=== PATIENT | male | born 1950 | race Caucasian/White ===

== ENCOUNTER 2020-07-20 01:00 | Inpatient (IN) | payer MEDICARE ==
[2020-07-20] MEDS ORDERED: HYDROMORPHONE HCL INJ/PF 2 MG/ML AMPULE IM ONE (02:33)
--- NOTE | 2020-07-20 02:33 | RADIOLOGY REPORT (SQ) ---
EXAM: X-ray hip two or more views, left CLINICAL DATA: 70-year-old male with bone pain TECHNICAL DATA: Two x-ray views of the pelvis and left hip were performed on 07/20/2020 at 1:59 AM. COMPARISONS: None FINDINGS: There is no evidence of fracture or dislocation. There is mild generalized narrowing of the hip joints. No focal lytic or sclerotic bone lesions are seen. Bone mineralization is normal. No focal soft tissue abnormalities are identified. IMPRESSION: No evidence of acute osseous injury involving the pelvis or left hip. There is mild generalized narrowing of the hip joints.
--- NOTE | 2020-07-20 02:46 | ER Document Report ---
Entered by ALFREDO DOMINGUEZ SCRIBE 07/20/20 0213 Acting as scribe for:NENITA CREWS DO ED Hip Pain/Injury - General Chief Complaint: Hip Injury Stated Complaint: FALL/LEFT HIP INJURY Mode of Arrival: Wheelchair Information source: Patient Notes: This 70 year old male patient with a history of MS presents to the ED today with complaints of left hip pain status post fall that occurred around 2345 last night. at bedside states that the patient was laying on the couch and fell onto his left hip. They report hearing crackles and a pop. Patient denies hitting his head or LOC. reports that the patient has had left hip pain for the past x5 weeks and that he went to see his PCP in [place] last week with this complaint and was diagnosed with bursitis. He was started on Prednisone which he finished x2 days ago, but reports that it did not provide any relief. She mentions that the patient also tried Tylenol, Aleve, ice/heat packs, and lidocaine patches without resolve. No urinary symptoms. - Related Data Allergies/Adverse Reactions: shellfish derived Allergy (Verified 07/20/20 10:23) Past Medical History - Social History Smoking Status: Never Smoker Cigarette use (# per day): No Chew tobacco use (# tins/day): No Smoking Education Provided: No Lives with: Spouse/Significant other Family History: Reviewed & Not Pertinent Patient has suicidal ideation: No Patient has homicidal ideation: No Musculoskeletal Medical History: Reports Hx Multiple Sclerosis Review of Systems - Review of Systems Constitutional: No symptoms reported EENT: No symptoms reported Cardiovascular: No symptoms reported Respiratory: No symptoms reported Gastrointestinal: No symptoms reported Genitourinary: See HPI. denies: Burning, Dysuria, Frequency, Hematuria Male Genitourinary: No symptoms reported Musculoskeletal: See HPI, Joint pain Skin: No symptoms reported Hematologic/Lymphatic: No symptoms reported Neurological/Psychological: See HPI. denies: Lost consciousness -: Yes All other systems reviewed and negative Physical Exam - Vital signs Vitals: Temp Pulse Resp BP Pulse Ox 97.8 F 40 L 16 147/70 H 100 07/20/20 01:08 07/20/20 01:08 07/20/20 01:08 07/20/20 01:08 07/20/20 01:08 - General General appearance: Alert, Other - Appears uncomfortable In distress: Mild - due to pain - HEENT Head: Normocephalic, Atraumatic Eyes: Normal Extraocular movements intact: Yes Pupils: PERRL - Respiratory Respiratory status: No respiratory distress Chest status: Nontender Breath sounds: Normal Chest palpation: Normal - Cardiovascular Rhythm: Regular Heart sounds: Normal auscultation Murmur: No Friction rub: No Gallop: None auscultated - Abdominal Inspection: Normal Distension: No distension Bowel sounds: Normal Tenderness: Nontender - Abdomen soft Organomegaly: No organomegaly - Back Back: Normal, Nontender - Extremities Hip: Tender - Tenderness to palpation of left hip. No: Instability Thigh: Tender - Tenderness to palpation of left proximal femur. No: Instability - Neurological Neuro grossly intact: Yes Orientation: AAOx4 [place] Coma Scale Eye Opening: Spontaneous [place] Coma Scale Verbal: Oriented [place] Coma Scale Motor: Obeys Commands Nabil Coma Scale Total: 15 - Psychological Associated symptoms: Normal affect, Normal mood - Skin Skin Temperature: Warm Skin Moisture: Dry Skin Color: Normal Course - Re-evaluation Re-evalutation: 07/20/20 04:38 MDM 70 year old with Left hip pain over past week or so and diagnosed with brusitis by pcp in [place]. Fell off of sofa onto left hip tonight. Better after dilaudid but went to move and pain increased. No fever or head injury. Abrasion to little finger right hand with fall but no sig pain. Went to sit up and leave and pain increased again. Will administer toradol and recheck. - Vital Signs Vital signs: Temp Pulse Resp BP Pulse Ox 98.0 F 62 19 147/74 H 97 07/24/20 11:07 07/24/20 11:07 07/24/20 11:07 07/24/20 11:07 07/24/20 11:07 - Laboratory Result Diagrams: 07/23/20 05:10 07/23/20 05:10 Laboratory results interpreted by me: 07/20/20 07/20/20 07/20/20 05:51 05:51 08:30 Hgb 13.3 L BUN 25 H C-Reactive Protein 26.8 H Total Protein 6.2 L Urine Protein 30 H Urine Ketones TRACE H Urine Ascorbic Acid 20 H Discharge - Discharge Clinical Impression: Multiple sclerosis Contusion of left hip Qualifiers: Encounter type: initial encounter Qualified Code(s): S70.02XA - Contusion of left hip, initial encounter Fracture of left hip Qualifiers: Encounter type: initial encounter Fracture type: closed Qualified Code(s): S72.002A - Fracture of unspecified part of neck of left femur, initial encounter for closed fracture Closed intertrochanteric fracture of left hip Qualifiers: Encounter type: initial encounter Fracture alignment: nondisplaced Qualified Code(s): S72.145A - Nondisplaced intertrochanteric fracture of left femur, initial encounter for closed fracture Condition: Stable Disposition: ADMITTED INPATIENT I personally performed the services described in the documentation, reviewed and edited the documentation which was dictated to the scribe in my presence, and it accurately records my words and actions.
--- NOTE | 2020-07-20 03:20 | RADIOLOGY REPORT (SQ) ---
EXAM DESCRIPTION: XR FEMUR 2 VIEWS COMPLETED DATE/TME: 07/20/2020 02:35 CLINICAL HISTORY: 70 years, Male, fall COMPARISON: None. NUMBER OF VIEWS: 4 TECHNIQUE: 4 view left femur LIMITATIONS: None. FINDINGS: Osteopenia. Negative for acute fracture or dislocation. Soft tissues are unremarkable IMPRESSION: No acute osseous abnormality copyright 2010 [employer]- All Rights Reserved
[2020-07-20] MEDS ORDERED: KETOROLAC TROMETHAMINE 60 MG/2 ML SDV IM ONE (04:37)
[2020-07-20] MEDS ORDERED: HYDROMORPHONE HCL INJ/PF 2 MG/ML AMPULE IV ONE ×3 (05:31→13:18)
[2020-07-20 06:28] LABS: ABSOLUTE BASOPHILS # (AUTO) 0.1 10^3/uL (0.0-0.2); ABSOLUTE EOSINOPHILS # (AUTO) 0.1 10^3/uL (0.0-0.6); ABSOLUTE LYMPHOCYTES (AUTO) 1.6 10^3/uL (0.5-4.7); ABSOLUTE MONOCYTES (AUTO) 0.8 10^3/uL (0.1-1.4); BASOPHILS % (AUTO) 0.8 % (0-2); EOSINOPHILS % (AUTO) 1.1 % (0-6); HEMOGLOBIN 13.3 g/dL (13.5-17.0); LYMPHOCYTES % (AUTO) 16.9 % (13-45); MEAN CORPUSCULAR HEMOGLOBIN 29.7 pg (27.0-33.4); MEAN CORPUSCULAR VOLUME 85 fl (80-97); MONOCYTES % (AUTO) 8.1 % (3-13); PLATELET COUNT 222 10^3/uL (150-450); RED BLOOD COUNT 4.47 10^6/uL (4.35-5.55); RED CELL DISTRIBUTION WIDTH 13.8 % (11.5-14.0); SEGMENTED NEUTROPHILS % (AUTO) 73.1 % (42-78); TOTAL CELLS COUNTED % (AUTO) 100 %; WHITE BLOOD COUNT 9.6 10^3/uL (4.0-10.5)
[2020-07-20 06:42] LABS: ALBUMIN 3.6 g/dL (3.5-5.0); ALKALINE PHOSPHATASE 90 U/L (38-126); ANION GAP 9 (5-19); ASPARTATE AMINO TRANSFERASE 40 U/L (17-59); BILIRUBIN,TOTAL 0.8 mg/dL (0.2-1.3); BLOOD UREA NITROGEN 25 mg/dL (7-20); C-REACTIVE PROTEIN 26.8 mg/L (<10.0); CALCIUM 8.8 mg/dL (8.4-10.2); CARBON DIOXIDE 29 mmol/L (22-30); CHLORIDE 100 mmol/L (98-107); GLUCOSE 103 mg/dL (75-110); TOTAL PROTEIN 6.2 g/dL (6.3-8.2)
[2020-07-20 08:51] LABS: APPEARANCE,URINE CLEAR; BILIRUBIN,URINE NEGATIVE (NEGATIVE); COLOR,URINE YELLOW; GLUCOSE, URINE NEGATIVE (NEGATIVE); KETONES,URINE TRACE mg/dL (NEGATIVE); LEUKOCYTE ESTERASE,URINE NEGATIVE (NEGATIVE); NITRITE,URINE NEGATIVE (NEGATIVE); PROTEIN,URINE 30 mg/dL (NEGATIVE); URINE SPECIFIC GRAVITY 1.034; UROBILINOGEN,URINE NEGATIVE mg/dL (<2.0)
--- NOTE | 2020-07-20 09:14 | RADIOLOGY REPORT (SQ) ---
EXAM DESCRIPTION: CT PELVIS WITHOUT IMAGES COMPLETED DATE/TIME: 07/20/2020 8:39 am REASON FOR STUDY: left hip pain COMPARISON: Same day radiograph TECHNIQUE: CT scan of the pelvis performed without intravenous or oral contrast. Images reviewed wi th soft tissue and bone windows. Reconstructed coronal and sagittal MPR images reviewed. All images stored on PACS. All CT scanners at this facility use dose modulation, iterative reconstruction, and/or weight based d osing when appropriate to reduce radiation dose to as low as reasonably achievable (ALARA). [facility]: Dose Right [facility]: CareDose [facility]: Dose Right [facility]: Teradose 4D [facility]: [employer] RADIATION DOSE: CT Rad equipment meets quality standard of care and radiation dose reduction techniq ues were employed. CTDIvol: 24.7 mGy. DLP: 868 mGy-cm. mGy. LIMITATIONS: None. FINDINGS: PELVIC BONES: No acute fracture. No worrisome bone lesions. VISUALIZED SPINE: No acute findings. Mild disc height loss at L4-5 and L5-S1. HIP(S): There is a left proximal intertrochanteric femur fracture without significant displacement or angulation. No suspicious osseous lesions. Mild bilateral hip osteoarthritic change including mild joint space loss, subchondral cystic change and osteophytosis. PELVIC SOFT TISSUES: Trace hydroceles. Scatter epididymal calcifications. EXTRAPELVIC SOFT TISSUES: No significant findings. OTHER: No other significant finding. IMPRESSION: Left proximal intertrochanteric femur fracture without significant displacement or angul ation. Findings reported to Dr. Diop at 0907 hours on 07/20/2020. TECHNICAL DOCUMENTATION: JOB ID: [id number] Quality ID # [id number]: Final reports with documentation of one or more dose reduction techniques (e.g., Au tomated exposure control, adjustment of the mA and/or kV according to patient size, use of iterative reconstruction technique) 2010 [employer]- All Rights Reserved Reading location - IP/workstation name: [email or web address]
[2020-07-20] MEDS ORDERED: ONDANSETRON HCL INJ/PF 4 MG/2 ML SDV IV ONE ×2 (10:08→13:20)
[2020-07-20] MEDS ORDERED: NORMAL SALINE 1000 ML 1,000 ML IV ONE (10:11)
--- NOTE | 2020-07-20 12:08 | RADIOLOGY REPORT (SQ) ---
EXAM DESCRIPTION: CHEST SINGLE VIEW IMAGES COMPLETED DATE/TIME: 07/20/2020 11:44 am REASON FOR STUDY: sobr COMPARISON: None. EXAM PARAMETERS: NUMBER OF VIEWS: One view. TECHNIQUE: Single frontal radiographic view of the chest acquired. RADIATION DOSE: NA LIMITATIONS: None. FINDINGS: LUNGS AND PLEURA: Trace lingular linear opacity, likely atelectasis or scarring. No focal consolidation. No pleural effusion or pneumothorax. MEDIASTINUM AND HILAR STRUCTURES: No masses. Contour normal. HEART AND VASCULAR STRUCTURES: Heart normal in size. Normal vasculature. BONES: No acute findings. HARDWARE: None in the chest. OTHER: No other significant finding. IMPRESSION: Trace lingular linear opacities, likely atelectasis or scarring. No other evidence of a cute intrathoracic process. TECHNICAL DOCUMENTATION: JOB ID: [id number] 2010 [employer]- All Rights Reserved Reading location - IP/workstation name: [email or web address]
--- NOTE | 2020-07-20 12:09 | RADIOLOGY REPORT (SQ) ---
EXAM DESCRIPTION: CT HEAD WITHOUT IMAGES COMPLETED DATE/TIME: 07/20/2020 11:41 am REASON FOR STUDY: facial asymmetry/Multiple Sclerosis COMPARISON: None. TECHNIQUE: Axial images acquired through the brain without intravenous contrast. Images reviewed wi th bone, brain and subdural windows. Additional sagittal and coronal reconstructions were generated. Images stored on PACS. All CT scanners at this facility use dose modulation, iterative reconstruction, and/or weight based d osing when appropriate to reduce radiation dose to as low as reasonably achievable (ALARA). [facility]: Dose Right [facility]: CareDose [facility]: Dose Right [facility]: Teradose 4D [facility]: [employer] RADIATION DOSE: CT Rad equipment meets quality standard of care and radiation dose reduction techniq ues were employed. CTDIvol: 53.2 mGy. DLP: 1150 mGy-cm. mGy. LIMITATIONS: None. FINDINGS: VENTRICLES: Normal size and contour. CEREBRUM: No masses. No hemorrhage. No midline shift. No evidence for acute infarction. Normal gra y/white matter differentiation. No areas of low density in the white matter. CEREBELLUM: No masses. No hemorrhage. No alteration of density. No evidence for acute infarction. EXTRAAXIAL SPACES: No fluid collections. No masses. ORBITS AND GLOBE: No intra- or extraconal masses. Normal contour of globe without masses. CALVARIUM: No fracture. PARANASAL SINUSES: No fluid or mucosal thickening. SOFT TISSUES: No mass or hematoma. OTHER: No other significant finding. IMPRESSION: NORMAL BRAIN CT WITHOUT CONTRAST. EVIDENCE OF ACUTE STROKE: NO. COMMENT: Quality ID # [id number]: Final reports with documentation of one or more dose reduction techniques (e.g., Automated exposure control, adjustment of the mA and/or kV according to patient size, use of iterative reconstruction technique) TECHNICAL DOCUMENTATION: JOB ID: [id number] 2010 [employer]- All Rights Reserved Reading location - IP/workstation name: [email or web address]
--- NOTE | 2020-07-20 12:29 | PDOC CONSULTATION ---
Consultation Consult Date: 07/20/20 Attending physician:: NENITA CREWS Provider Consulted: ALLY HURST Consult reason:: Left hip nondisplaced intertrochanteric fracture History of Present Illness Patient complains of: Left hip pain following fall History of Present Illness: ANUP REID is a 70 year old male history of multiple sclerosis and a 5-week history of left hip pain. He has been treated by his primary care physician for bursitis. He has been taking oral steroids without improvement. The patient states that he was lying on the couch last evening in an attempt to relieve the discomfort in his hip. He sustained a fall directly onto his hip and felt immediate discomfort. CT scan in the emergency department reveals a nondisplaced fracture in the intertrochanteric region of the left hip. Past Medical History Cardiac Medical History: Reports: Hyperlipidema, Hypertension Pulmonary Medical History: Reports: Chronic Obstructive Pulmonary Disease (COPD) EENT Medical History: Reports: None Neurological Medical History: Reports: Multiple Sclerosis Endocrine Medical History: Reports: None Renal/ Medical History: Reports: None Malignancy Medical History: Reports: None, Skin Cancer GI Medical History: Reports: None Musculoskeltal Medical History: Reports: Arthritis Psychiatric Medical History: Reports: Depression, General Anxiety Disorder Traumatic Medical History: Reports: None Hematology: Reports: None Infectious Medical History: Reports: None Past Surgical History Past Surgical History: Reports: Other Social History Lives with: Spouse/Significant other Smoking Status: Never Smoker Frequency of Alcohol Use: None Hx Recreational Drug Use: No Family History Family History: Reviewed & Not Pertinent Parental Family History Reviewed: Yes Children Family History Reviewed: Unknown Sibling(s) Family History Reviewed.: Yes Medication/Allergy Home Medications: Hydrocodone/Acetaminophen [Pavo 5-325 mg Tablet] 1 tab PO TID #12 tablet 07/20/20 Hydrocodone/Acetaminophen [Pavo 5-325 mg Tablet] 1 tab PO TID #12 tablet Polyethylene Glycol 3350 [Miralax Powder 17 gm/Packet] 1 packet PO DAILY #7 pkg 07/20/20 Allergies/Adverse Reactions: shellfish derived Allergy (Verified 07/20/20 10:23) Review of Systems ROS unobtainable: Other - As per HPI Physical Exam Vital Signs: Temp Pulse Resp BP Pulse Ox 98.2 F 68 16 136/76 H 96 07/20/20 10:34 07/20/20 10:34 07/20/20 10:34 07/20/20 10:34 07/20/20 10:34 Intake & Output 07/19/20 07/20/20 07/21/20 06:59 06:59 06:59 Weight 70.3 kg General appearance: PRESENT: no acute distress Head exam: PRESENT: atraumatic Neck exam: PRESENT: full ROM Respiratory exam: PRESENT: clear to auscultation merry. ABSENT: rales, rhonchi, wheezes Cardiovascular exam: PRESENT: RRR. ABSENT: diastolic murmur, rubs, systolic murmur Rectal exam: PRESENT: deferred Musculoskeletal exam: PRESENT: other - There is normal alignment of the left leg. There is discomfort in the groin with gentle internal and external rotation of the hip. The patient has normal motion of the knee, ankle, and foot. Sensation is intact to touch. 2+ DP and PT pulses. Results Laboratory Results: 07/20/20 05:51 07/20/20 05:51 07/20/20 07/20/20 07/20/20 05:51 05:51 08:30 WBC 9.6 RBC 4.47 Hgb 13.3 L Hct 38.0 MCV 85 MCH 29.7 MCHC 35.0 RDW 13.8 Plt Count 222 Seg Neutrophils % 73.1 Sodium 137.5 Potassium 4.0 Chloride 100 Carbon Dioxide 29 Anion Gap 9 BUN 25 H Creatinine 0.95 Est GFR ( Amer) > 60 Glucose 103 Calcium 8.8 Total Bilirubin 0.8 AST 40 Alkaline Phosphatase 90 C-Reactive Protein 26.8 H Total Protein 6.2 L Albumin 3.6 Urine Color YELLOW Urine Appearance CLEAR Urine pH 6.0 Ur Specific [place] 1.034 Urine Protein 30 H Urine Glucose (UA) NEGATIVE Urine Ketones TRACE H Urine Blood NEGATIVE Urine Nitrite NEGATIVE Ur Leukocyte Esterase NEGATIVE Urine WBC (Auto) 7 Urine RBC (Auto) 1 Impressions: Hip X-Ray 07/20/20 00:00 IMPRESSION: No evidence of acute osseous injury involving the pelvis or left hip. There is mild generalized narrowing of the hip joints. Femur X-Ray 07/20/20 02:35 IMPRESSION: No acute osseous abnormality copyright 2010 [employer]- All Rights Reserved Pelvis CT 07/20/20 05:29 IMPRESSION: Left proximal intertrochanteric femur fracture without significant displacement or angulation. Findings reported to Dr. Diop at 0907 hours on 07/20/2020. Chest X-Ray 07/20/20 10:41 IMPRESSION: Trace lingular linear opacities, likely atelectasis or scarring. No other evidence of acute intrathoracic process. Head CT 07/20/20 11:05 IMPRESSION: NORMAL BRAIN CT WITHOUT CONTRAST. EVIDENCE OF ACUTE STROKE: NO. Assessment & Plan - Diagnosis (1) Closed intertrochanteric fracture of left hip Qualifiers: Encounter type: initial encounter Fracture alignment: nondisplaced Qualified Code(s): S72.145A - Nondisplaced intertrochanteric fracture of left fe mur, initial encounter for closed fracture Is this a current diagnosis for this admission?: Yes - Time Time Spent: 30 to 50 Minutes Anticipated discharge: Home Anticipated DC Timeframe: within 48 hours - Plan Summary Plan Summary: The patient is currently undergoing a CT scan of his head to ensure that some potentially new neurologic findings are not due to a CVA. I have recommended operative treatments of the patient's nondisplaced intertrochanteric fracture. Risk, benefits, and alternatives were discussed with the patient. An op portunity for questions was provided. All questions were answered to his satisfaction. The patient expressed understanding and wishes to proceed.
[2020-07-20] MEDS ORDERED: MIDAZOLAM 2 MG/2 ML INJ ONE (15:08)
[2020-07-20] MEDS ORDERED: BUPIVACAINE HCL 0.5 % INJ/PF 30 ML SDV ONE (15:25)
[2020-07-20] MEDS ORDERED: FENTANYL CITRATE INJ/PF 100 MCG/2 ML AMPUL ONE (15:31)
[2020-07-20] MEDS ORDERED: PROPOFOL INJ 200 MG/20 ML VIAL IV ONE (15:31)
[2020-07-20] MEDS ORDERED: CEFAZOLIN INJ 1 GM VIAL ONE (16:00)
[2020-07-20] MEDS ORDERED: PROMETHAZINE HCL INJ 25 MG/1 ML VIAL IV PRN ×2 (16:09)
[2020-07-20] MEDS ORDERED: DIPHENHYDRAMINE HCL 50 MG/ML VIAL IV PRN (16:09)
[2020-07-20] MEDS ORDERED: MEPERIDINE HCL/PF INJ 25 MG/1 ML DISP.SYRIN IV PRN (16:09)
[2020-07-20] MEDS ORDERED: FENTANYL CITRATE INJ/PF 100 MCG/2 ML AMPUL IV PRN ×3 (16:09)
[2020-07-20] MEDS ORDERED: MORPHINE SULFATE 10 MG/ML INJ IV PRN (16:09)
[2020-07-20] MEDS ORDERED: ONDANSETRON HCL INJ/PF 4 MG/2 ML SDV IV PRN ×2 (16:25→17:08)
[2020-07-20] MEDS ORDERED: ACETAMINOPHEN 325 MG TABLET PO PRN (17:08)
[2020-07-20] MEDS ORDERED: ONDANSETRON 4 MG TAB.RAPDIS PO PRN (17:08)
--- NOTE | 2020-07-20 17:17 | RADIOLOGY REPORT (SQ) ---
EXAM DESCRIPTION: NO CHG FLUORO; HIP LEFT AP/LATERAL IMAGES COMPLETED DATE/TIME: 07/20/2020 5:05 pm REASON FOR STUDY: ORIF LT HIP COMPARISON: 07/20/2020 FLUOROSCOPY TIME: 0.6 minutes 3 Images saved to PACS LIMITATIONS: None. PROCEDURE: ORIF left hip. FINDINGS: Images document placement of a medullary pamela and a long cannulated screw through the femor al neck and head. IMPRESSION: ORIF left hip. Refer to operative note for further information. COMMENT: PQRS 6045F: Fluoroscopy time of the procedure is documented in the report. TECHNICAL DOCUMENTATION: JOB ID: [id number] 2010 [employer]- All Rights Reserved Reading location - IP/workstation name: [email or web address]
--- NOTE | 2020-07-20 17:17 | RADIOLOGY REPORT (SQ) ---
EXAM DESCRIPTION: NO CHG FLUORO; HIP LEFT AP/LATERAL IMAGES COMPLETED DATE/TIME: 07/20/2020 5:05 pm REASON FOR STUDY: ORIF LT HIP COMPARISON: 07/20/2020 FLUOROSCOPY TIME: 0.6 minutes 3 Images saved to PACS LIMITATIONS: None. PROCEDURE: ORIF left hip. FINDINGS: Images document placement of a medullary pamela and a long cannulated screw through the femor al neck and head. IMPRESSION: ORIF left hip. Refer to operative note for further information. COMMENT: PQRS 6045F: Fluoroscopy time of the procedure is documented in the report. TECHNICAL DOCUMENTATION: JOB ID: [id number] 2010 [employer]- All Rights Reserved Reading location - IP/workstation name: [email or web address]
--- NOTE | 2020-07-20 17:24 | PDOC H&P ---
History of Present Illness Admission Date/PCP: 07/20/20 14:18 History of Present Illness: ANUP REID is a 70 year old male with past medical history significant for stable multiple sclerosis who presented after falling off of his couch 1 night prior to admission, presented to ED with severe right hip pain, found to have a left intertrochanteric fracture on CT. Orthopedic surgery consulted and they requested medicine to admit and they would take patient to the OR for surgical intervention. Per patient and his , he does have some anxiety issues regarding surgeries and his MS causes some additional unilateral weakness during times of great stress. Patient states he has not had any acute problems from his MS in many years and he does not take any ongoing treatment for this. Patient had some new left-sided facial asymmetry which he and his related to the stress of his hip fracture causing MS to become worse. CT head without contrast did not show any acute abnormalities. Other than severe right hip pain and anxiety, patient has no acute complaints. Past Medical History Cardiac Medical History: Reports: Hyperlipidema, Hypertension Pulmonary Medical History: Reports: Chronic Obstructive Pulmonary Disease (COPD) EENT Medical History: Reports: None Neurological Medical History: Reports: Multiple Sclerosis Endocrine Medical History: Reports: None Renal/ Medical History: Reports: None Malignancy Medical History: Reports: None, Skin Cancer GI Medical History: Reports: None Musculoskeltal Medical History: Reports: Arthritis Psychiatric Medical History: Reports: Depression, General Anxiety Disorder Traumatic Medical History: Reports: None Hematology: Reports: None Infectious Medical History: Reports: None Past Surgical History Past Surgical History: Reports: Other Social History Lives with: Spouse/Significant other Smoking Status: Never Smoker Frequency of Alcohol Use: None Hx Recreational Drug Use: No Hx Prescription Drug Abuse: No - Advance Directive Resuscitation Status: Full Code Surrogate healthcare decision maker:: Family History Family History: Reviewed & Not Pertinent Parental Family History Reviewed: Yes Children Family History Reviewed: Yes Sibling(s) Family History Reviewed.: Yes Medication/Allergy Home Medications: Cholecalciferol (Vitamin D3) [Vitamin D3 1000 Unit Tablet] 1,000 mg PO DAILY 07/20/20 Hydrocodone/Acetaminophen [[place] 5-325 mg Tablet] 1 tab PO TID #12 tablet Hydrocodone/Acetaminophen [[place] 5-325 mg Tablet] 1 tab PO TID #12 tablet 07/20/20 Polyethylene Glycol 3350 [Miralax Powder 17 gm/Packet] 1 packet PO DAILY #7 pkg 07/20/20 Allergies/Adverse Reactions: shellfish derived Allergy (Verified 07/20/20 10:23) Review of Systems All systems: reviewed and no additional remarkable complaints except as stated - Review of systems per HPI, otherwise negative Physical Exam Vital Signs: Temp Pulse Resp BP Pulse Ox 98.8 F 84 18 154/78 H 93 07/20/20 14:14 07/20/20 14:14 07/20/20 14:14 07/20/20 14:14 07/20/20 14:14 Intake & Output 07/19/20 07/20/20 07/21/20 06:59 06:59 06:59 Weight 70.3 kg General appearance: PRESENT: no acute distress, well-developed, well-nourished Head exam: PRESENT: atraumatic, normocephalic Eye exam: PRESENT: conjunctiva pink Mouth exam: PRESENT: moist Respiratory exam: PRESENT: clear to auscultation merry. ABSENT: rales, rhonchi, wheezes Cardiovascular exam: PRESENT: RRR. ABSENT: diastolic murmur, rubs, systolic murmur GI/Abdominal exam: PRESENT: normal bowel sounds, soft. ABSENT: distended, guarding, mass, organolmegaly, rebound, tenderness Neurological exam: PRESENT: alert, awake, oriented to person, oriented to place, oriented to time, oriented to situation Psychiatric exam: PRESENT: appropriate affect, normal mood Skin exam: PRESENT: dry, intact, warm Results Laboratory Results: 07/20/20 05:51 07/20/20 05:51 07/20/20 07/20/20 07/20/20 05:51 05:51 08:30 WBC 9.6 RBC 4.47 Hgb 13.3 L Hct 38.0 MCV 85 MCH 29.7 MCHC 35.0 RDW 13.8 Plt Count 222 Seg Neutrophils % 73.1 Sodium 137.5 Potassium 4.0 Chloride 100 Carbon Dioxide 29 Anion Gap 9 BUN 25 H Creatinine 0.95 Est GFR ( Amer) > 60 Glucose 103 Calcium 8.8 Total Bilirubin 0.8 AST 40 Alkaline Phosphatase 90 C-Reactive Protein 26.8 H Total Protein 6.2 L Albumin 3.6 Urine Color YELLOW Urine Appearance CLEAR Urine pH 6.0 Ur Specific [place] 1.034 Urine Protein 30 H Urine Glucose (UA) NEGATIVE Urine Ketones TRACE H Urine Blood NEGATIVE Urine Nitrite NEGATIVE Ur Leukocyte Esterase NEGATIVE Urine WBC (Auto) 7 Urine RBC (Auto) 1 Impressions: Femur X-Ray 07/20/20 02:35 IMPRESSION: No acute osseous abnormality copyright 2010 [employer]- All Rights Reserved Pelvis CT 07/20/20 05:29 IMPRESSION: Left proximal intertrochanteric femur fracture without significant displacement or angulation. Findings reported to Dr. Diop at 0907 hours on 07/20/2020. Chest X-Ray 07/20/20 10:41 IMPRESSION: Trace lingular linear opacities, likely atelectasis or scarring. N o other evidence of acute intrathoracic process. Head CT 07/20/20 11:05 IMPRESSION: NORMAL BRAIN CT WITHOUT CONTRAST. EVIDENCE OF ACUTE STROKE: NO. Assessment and Plan - Diagnosis (1) Closed intertrochanteric fracture of left hip Qualifiers: Encounter type: initial encounter Fracture alignment: nondisplaced Qualified Code(s): S72.145A - Nondisplaced intertrochanteric fracture of left femur, initial encounter for closed fracture Is this a current diagnosis for this admission?: Yes Plan: Follow his counts onto his left hip Fracture seen on CT scan Orthopedic surgery consulted, went to the OR 07/20 Okay for regular diet when he is out of surgery assuming he passes bedside swallow postop (2) Contusion of left hip Qualifiers: Encounter type: initial encounter Qualified Code(s): S70.02XA - Contusion of left hip, initial encounter Is this a current diagnosis for this admission?: Yes Plan: Pain management (3) Multiple sclerosis Is this a current diagnosis for this admission?: Yes Plan: Not on any treatment currently Not in acute flare, no acute problems with this disease process for many years per patient (4) Anxiety as acute reaction to exceptional stress Is this a current diagnosis for this admission?: Yes Plan: Occasionally causes acute worsening of his MS weakness, stable - Time Time Spent with patient: 35 or more minutes Medications reviewed and adjusted accordingly: Yes Anticipated Discharge Disposition: Nursing Home Facility Anticipated Discharge Timeframe: within 72 hours - Inpatient Certification Based on my medical assessment, after consideration of the patient's comorbidities, presenting symptoms, or acuity I expect that the services needed warrant INPATIENT care.: Yes I certify that my determination is in accordance with my understanding of Medicare's requirements for reasonable and necessary INPATIENT services [42 CFR 412.3e].: Yes Medical Necessity: Significant Comorbidiites Make Outpatient Treatment Too Risky, Need Close Monitoring Due to Risk of Patient Decompensation, Need for Pain Control, Need for Surgery, Risk of Complication if Not Cared For in Hospital, Risk of Diagnosis Which Will Require Inpatient Eval/Care/Monitoring
--- NOTE | 2020-07-20 17:28 | Operative Report ---
Operative Report DATE OF SURGERY: 07/20/20 PREOPERATIVE DIAGNOSIS: Left hip nondisplaced intertrochanteric fracture POSTOPERATIVE DIAGNOSIS: Same OPERATION: Left hip open reduction internal fixation with gamma nail cephalo- medullary implant SURGEON: ALLY HURST ANESTHESIA: GA COMPLICATIONS: None ESTIMATED BLOOD LOSS: 100 cc INTRAOPERATIVE FINDINGS: Same PROCEDURE: Indications for procedure: Patient is a 70-year-old man with multiple sclerosis. His reports that he fell 5 weeks ago going up a wheelchair ramp. He has complained of left hip pain since that fall. His medical doctor describes his symptoms to bursitis and has been treating him for bursitis. He sustained a secondary fall off the couch last evening causing him exquisite pain. Radiographs in the emergency room were negative last evening; however, CT scan demonstrated a nondisplaced intertrochanteric fracture. Description of procedure: Following the induction of a general anesthetic and 2 g of Ancef, the patient was positioned supine on the fracture table. All bony prominences were padded. Sufficient traction was placed through the extremity to maintain the extremity in position. The left lower extremity was sterilely prepped with ChloraPrep and draped in standard fashion. Under intensification starting position for the gamma nail guidewire was identified. Sharp incision was performed through skin with electrocautery through the subcutaneous tissues. Guidewire was placed under image intensification in its proper position and then overreamed. The patient's canal was quite narrow which necessitated sequential reaming from a size 9 to a size 11-1/2. A size 10 short gamma nail was then placed. With the guide from the gamma nail a guidewire was placed centrally through the femoral head. Its position was checked on biplanar image intensification. The guidewire was then overreamed and a 95 mm screw was placed. The screw was locked proximally. Distal locking screw was placed with drilling through the gamma nail guide. The patient's bone was considerably harder than normal which required tapping of the screw threads. A bicortical screw was then placed. Copious irrigation of the wounds was performed. The fascia was closed with 2-0 Vicryl suture. The subcutaneous tissue was closed with 2-0 Vicryl suture. The skin was reapproximated with a subcuticular 3-0 Monocryl suture. 30 cc of quarter percent Marcaine was injected for postoperative analgesia and a bulky sterile dressing was applied. The patient tolerated the procedure well without complications was brought recovery in stable condition. Postoperatively he will be maintained on 24 hours of intravenous antibiotics. He will be seen by therapy for weightbearing as tolerated ambulation training.
--- NOTE | 2020-07-20 17:31 | ADVANCED CARE ---
- Diagnosis (1) Closed intertrochanteric fracture of left hip Diagnosis Current: Yes (2) Contusion of left hip Diagnosis Current: Yes (3) Multiple sclerosis Diagnosis Current: Yes (4) Anxiety as acute reaction to exceptional stress Diagnosis Current: Yes Attendance: Patient Resuscitation Status: Full Code Discussion: All aspects of code status discussed with patient/POA including cardioversion, chest compressions, and intubation and the patient/POA indicated they wish to be full code MPOA is designated as: Time Spent: Greater than 16 minutes
[2020-07-20] MEDS: ENOXAPARIN SODIUM INJ 40 MG/0.4 ML DISP.SYRIN SUBCUT SCH (18:30)
[2020-07-20] MEDS: OXYCODONE-ACETAMINOPHEN 5-325 MG TABLET PO PRN (20:17)
[2020-07-21] MEDS: OXYCODONE-ACETAMINOPHEN 5-325 MG TABLET PO PRN ×6 (00:20→21:13)
[2020-07-21 06:45] LABS: HEMATOCRIT 32.2 % (37.9-51.0); HEMOGLOBIN 11.5 g/dL (13.5-17.0); MEAN CORPUSCULAR HEMOGLOBIN 30.3 pg (27.0-33.4); MEAN CORPUSCULAR HGB CONC 35.6 g/dL (32.0-36.0); MEAN CORPUSCULAR VOLUME 85 fl (80-97); PLATELET COUNT 172 10^3/uL (150-450); RED BLOOD COUNT 3.79 10^6/uL (4.35-5.55); RED CELL DISTRIBUTION WIDTH 13.9 % (11.5-14.0); WHITE BLOOD COUNT 8.1 10^3/uL (4.0-10.5)
[2020-07-21 07:12] LABS: ALBUMIN 3.2 g/dL (3.5-5.0); ALKALINE PHOSPHATASE 84 U/L (38-126); ANION GAP 5 (5-19); ASPARTATE AMINO TRANSFERASE 45 U/L (17-59); BILIRUBIN,DIRECT 0.1 mg/dL (0.0-0.4); BILIRUBIN,TOTAL 1.1 mg/dL (0.2-1.3); BLOOD UREA NITROGEN 17 mg/dL (7-20); CALCIUM 8.2 mg/dL (8.4-10.2); CARBON DIOXIDE 30 mmol/L (22-30); CHLORIDE 100 mmol/L (98-107); GLUCOSE 117 mg/dL (75-110); PHOSPHORUS 2.8 mg/dL (2.5-4.5); POTASSIUM 3.9 mmol/L (3.6-5.0); TOTAL PROTEIN 5.5 g/dL (6.3-8.2)
[2020-07-21] MEDS: ENOXAPARIN SODIUM INJ 40 MG/0.4 ML DISP.SYRIN SUBCUT SCH ×3 (11:07→11:10)
[2020-07-21] MEDS: DOCUSATE SODIUM 100 MG CAPSULE PO SCH (11:07)
--- NOTE | 2020-07-21 14:04 | PDOC PROGRESS REPORT ---
Subjective Progress Note for:: 07/21/20 Subjective:: The patient is complaining of postoperative discomfort of the left hip following cephalo-medullary nail placement for intertrochanteric fracture. Reason For Visit: ACUTE RIGHT HIP FRACTURE AFTER FALL AT HOME, Postoperative day #1 status post open reduction internal fixation of left hip intertrochanteric fracture with gamma cephalo-medullary nail. Physical Exam Vital Signs: Temp Pulse Resp BP Pulse Ox 98.3 F 87 19 113/98 H 99 07/21/20 11:00 07/21/20 11:00 07/21/20 11:00 07/21/20 11:00 07/21/20 11:00 Intake & Output 07/20/20 07/21/20 07/22/20 06:59 06:59 06:59 Intake Total 1290 Output Total 900 225 Balance 390 -225 Weight 70.3 kg 70 kg General appearance: PRESENT: no acute distress, well-developed, well-nourished Head exam: PRESENT: atraumatic, normocephalic Neck exam: PRESENT: full ROM Respiratory exam: PRESENT: clear to auscultation merry. ABSENT: rales, rhonchi, wheezes Cardiovascular exam: PRESENT: RRR. ABSENT: diastolic murmur, rubs, systolic murmur Musculoskeletal exam: PRESENT: other - The surgical incisions are healing well. There is no drainage on the postoperative dressings. There is no discomfort with gentle motion of the hip. The patient is able to dorsiflex and plantarflex the ankle. Sensation is normal. Results Laboratory Results: 07/21/20 06:10 07/21/20 06:10 07/21/20 07/21/20 06:10 06:10 WBC 8.1 RBC 3.79 L Hgb 11.5 L Hct 32.2 L MCV 85 MCH 30.3 MCHC 35.6 RDW 13.9 Plt Count 172 Sodium 134.8 L Potassium 3.9 Chloride 100 Carbon Dioxide 30 Anion Gap 5 BUN 17 Creatinine 0.90 Est GFR ( Amer) > 60 Glucose 117 H Calcium 8.2 L Phosphorus 2.8 Magnesium 2.1 Total Bilirubin 1.1 AST 45 Alkaline Phosphatase 84 Total Protein 5.5 L Albumin 3.2 L Impressions: Fluoroscopy 07/20/20 00:00 IMPRESSION: ORIF left hip. Refer to operative note for further information. Hip X-Ray 07/20/20 00:00 IMPRESSION: ORIF left hip. Refer to operative note for further information. Femur X-Ray 07/20/20 02:35 IMPRESSION: No acute osseous abnormality copyright 2011 [employer] All Rights Reserved Pelvis CT 07/20/20 05:29 IMPRESSION: Left proximal intertrochanteric femur fracture without significant displacement or angulation. Findings reported to Dr. Diop at 0907 hours on 07/20/2020. Chest X-Ray 07/20/20 10:41 IMPRESSION: Trace lingular linear opacities, likely atelectasis or scarring. No other evidence of acute intrathoracic process. Head CT 07/20/20 11:05 IMPRESSION: NORMAL BRAIN CT WITHOUT CONTRAST. EVIDENCE OF ACUTE STROKE: NO. Assessment & Plan - Diagnosis (1) Closed intertrochanteric fracture of left hip Qualifiers: Encounter type: initial encounter Fracture alignment: nondisplaced Qualified Code(s): S72.145A - Nondisplaced intertrochanteric fracture of left femur, initial encounter for closed fracture Is this a current diagnosis for this admission?: Yes - Time Critical Time spent with patient: 15-24 minutes Anticipated Discharge Disposition: Home, Self Care Anticipated Discharge Timeframe: within 24 hours - I have discussed with the patient that given his clinical history it is likely that the symptoms he was experiencing prior to his most recent fall were due to a nondisplaced fracture of the hip sustained in a previous fall 5 weeks ago. Given the patient's relatively young age, I am hopeful that he will progress with physical therapy and be able to be discharged home. He is clear for discharge from an orthopedic standpoint either to home if he can be cleared by physical therapy or to a senior care facility.
--- NOTE | 2020-07-21 14:05 | EKG REPORT ---
SEVERITY:- ABNORMAL ECG - SINUS RHYTHM MULTIPLE ATRIAL PREMATURE COMPLEXES NONSPECIFIC T ABNORMALITIES, LATERAL LEADS : Confirmed by: Jazmin Brooke 21-Jul-2020 14:05:02
[2020-07-21] MEDS ORDERED: TRAMADOL HCL 50 MG TABLET PO PRN (14:18)
[2020-07-21] MEDS ORDERED: ACETAMINOPHEN 325 MG TABLET PO PRN (14:19)
[2020-07-21] MEDS ORDERED: ONDANSETRON HCL INJ/PF 4 MG/2 ML SDV IV PRN (14:20)
--- NOTE | 2020-07-21 14:34 | PDOC PROGRESS REPORT ---
Subjective Subjective:: Patient admitted for left hip fracture, underwent surgical correction overnight 07/20. Pain seems to be mostly controlled and patient is starting to work with physical therapy. Orthopedic surgery states that patient can be discharged soon after he is gotten some more physical therapy and been evaluated for SNF versus home health. Patient has no new complaints other than moderate to severe intermittent left hip pain. Reason For Visit: ACUTE RIGHT HIP FRACTURE AFTER FALL AT HOME, Physical Exam Vital Signs: Temp Pulse Resp BP Pulse Ox 98.3 F 87 19 113/98 H 99 07/21/20 11:00 07/21/20 11:00 07/21/20 11:00 07/21/20 11:00 07/21/20 11:00 Intake & Output 07/20/20 07/21/20 07/22/20 06:59 06:59 06:59 Intake Total 1290 Output Total 900 225 Balance 390 -225 Weight 70.3 kg 70 kg General appearance: PRESENT: no acute distress, well-developed, well-nourished Head exam: PRESENT: atraumatic, normocephalic Eye exam: PRESENT: conjunctiva pink Mouth exam: PRESENT: moist Respiratory exam: PRESENT: clear to auscultation merry. ABSENT: rales, rhonchi, wheezes Cardiovascular exam: PRESENT: RRR. ABSENT: diastolic murmur, rubs, systolic murmur GI/Abdominal exam: PRESENT: normal bowel sounds, soft. ABSENT: distended, guarding, mass, organolmegaly, rebound, tenderness Musculoskeletal exam: PRESENT: tenderness - Left hip tenderness moderate to severe at times Neurological exam: PRESENT: alert, awake, oriented to person, oriented to place, oriented to time, oriented to situation Results Laboratory Results: 07/21/20 06:10 07/21/20 06:10 07/21/20 07/21/20 06:10 06:10 WBC 8.1 RBC 3.79 L Hgb 11.5 L Hct 32.2 L MCV 85 MCH 30.3 MCHC 35.6 RDW 13.9 Plt Count 172 Sodium 134.8 L Potassium 3.9 Chloride 100 Carbon Dioxide 30 Anion Gap 5 BUN 17 Creatinine 0.90 Est GFR ( Amer) > 60 Glucose 117 H Calcium 8.2 L Phosphorus 2.8 Magnesium 2.1 Total Bilirubin 1.1 AST 45 Alkaline Phosphatase 84 Total Protein 5.5 L Albumin 3.2 L Impressions: Fluoroscopy 07/20/20 00:00 IMPRESSION: ORIF left hip. Refer to operative note for further information. Hip X-Ray 07/20/20 00:00 IMPRESSION: ORIF left hip. Refer to operative note for further information. Femur X-Ray 07/20/20 02:35 IMPRESSION: No acute osseous abnormality copyright 2010 [employer]- All Rights Reserved Pelvis CT 07/20/20 05:29 IMPRESSION: Left proximal intertrochanteric femur fracture without significant displacement or angulation. Findings reported to Dr. Diop at 0907 hours on 07/20/2020. Chest X-Ray 07/20/20 10:41 IMPRESSION: Trace lingular linear opacities, likely atelectasis or scarring. No other evidence of acute intrathoracic process. Head CT 07/20/20 11:05 IMPRESSION: NORMAL BRAIN CT WITHOUT CONTRAST. EVIDENCE OF ACUTE STROKE: NO. Assessment and Plan - Diagnosis (1) Closed intertrochanteric fracture of left hip Qualifiers: Encounter type: initial encounter Fracture alignment: nondisplaced Qualified Code(s): S72.145A - Nondisplaced intertrochanteric fracture of left femur, initial encounter for closed fracture Is this a current diagnosis for this admission?: Yes Plan: Follow his counts onto his left hip Fracture seen on CT scan Orthopedic surgery consulted, went to the OR 07/20 Okay for regular diet when he is out of surgery assuming he passes bedside swallow postop 07/19/2020 Orthopedic surgery state surgery went well and patient can be discharged from their standpoint after he receives some additional physical therapy and evaluation for SNF versus home health Pain is not quite controlled today and we will continue working on this today (2) Contusion of left hip Qualifiers: Encounter type: initial encounter Qualified Code(s): S70.02XA - Contusion of left hip, initial encounter Is this a current diagnosis for this admission?: Yes (3) Multiple sclerosis Is this a current diagnosis for this admission?: Yes Plan: Not on any treatment currently Not in acute flare, no acute problems with this disease process for many years per patient Stable postop per patient, at baseline (4) Anxiety as acute reaction to exceptional stress Is this a current diagnosis for this admission?: Yes Plan: Occasionally causes acute worsening of his MS weakness, stable Resolved - Time Time Spent with patient: 25-34 minutes Medications reviewed and adjusted accordingly: Yes Anticipated Discharge Disposition: Home with Home Health Anticipated Discharge Timeframe: within 24 hours - Inpatient Certification Based on my medical assessment, after consideration of the patient's comorbidities, presenting symptoms, or acuity I expect that the services needed warrant INPATIENT care.: Yes I certify that my determination is in accordance with my understanding of Medicare's requirements for reasonable and necessary INPATIENT services [42 CFR 412.3e].: Yes Medical Necessity: Significant Comorbidiites Make Outpatient Treatment Too Risky, Need Close Monitoring Due to Risk of Patient Decompensation, Need for Pain Control, Risk of Complication if Not Cared For in Hospital, Risk of Diagnosis Which Will Require Inpatient Eval/Care/Monitoring
[2020-07-21] MEDS: ASPIRIN 325 MG TABLET PO SCH (15:17)
[2020-07-21] MEDS: CEFAZOLIN SODIUM 2 GM in DEXTROSE 5%-WATER 100 ML IV SCH (17:15)
[2020-07-22] MEDS: OXYCODONE-ACETAMINOPHEN 5-325 MG TABLET PO PRN ×4 (01:23→19:15)
[2020-07-22] MEDS: CEFAZOLIN SODIUM 2 GM in DEXTROSE 5%-WATER 100 ML IV SCH ×2 (01:24→09:57)
[2020-07-22 05:47] LABS: HEMATOCRIT 34.3 % (37.9-51.0); HEMOGLOBIN 12.1 g/dL (13.5-17.0); MEAN CORPUSCULAR HEMOGLOBIN 30.1 pg (27.0-33.4); MEAN CORPUSCULAR HGB CONC 35.2 g/dL (32.0-36.0); MEAN CORPUSCULAR VOLUME 85 fl (80-97); PLATELET COUNT 185 10^3/uL (150-450); RED BLOOD COUNT 4.01 10^6/uL (4.35-5.55); RED CELL DISTRIBUTION WIDTH 13.7 % (11.5-14.0); WHITE BLOOD COUNT 8.6 10^3/uL (4.0-10.5)
[2020-07-22 06:13] LABS: ALBUMIN 3.2 g/dL (3.5-5.0); ALKALINE PHOSPHATASE 103 U/L (38-126); ASPARTATE AMINO TRANSFERASE 47 U/L (17-59); BILIRUBIN,DIRECT 0.4 mg/dL (0.0-0.4); BILIRUBIN,TOTAL 1.1 mg/dL (0.2-1.3); BLOOD UREA NITROGEN 15 mg/dL (7-20); CALCIUM 8.6 mg/dL (8.4-10.2); GLUCOSE 115 mg/dL (75-110); POTASSIUM 4.5 mmol/L (3.6-5.0); TOTAL PROTEIN 5.9 g/dL (6.3-8.2)
[2020-07-22 06:20] LABS: ANION GAP 8 (5-19); CARBON DIOXIDE 31 mmol/L (22-30); CHLORIDE 97 mmol/L (98-107)
[2020-07-22] MEDS: DOCUSATE SODIUM 100 MG CAPSULE PO SCH (09:56)
[2020-07-22] MEDS: ASPIRIN 325 MG TABLET PO SCH (09:56)
[2020-07-22] MEDS: ENOXAPARIN SODIUM INJ 40 MG/0.4 ML DISP.SYRIN SUBCUT SCH (09:59)
--- NOTE | 2020-07-22 13:34 | PDOC PROGRESS REPORT ---
Subjective Progress Note for:: 07/22/20 Subjective:: The patient is complaining of postoperative discomfort of the left hip following cephalo-medullary nail placement for intertrochanteric fracture. The patient reports doing reasonably well with the therapist. He states that he has difficulty initiating ambulation but once he begins to ambulate he does not experience any problems. The therapy note has been reviewed. Reason For Visit: ACUTE RIGHT HIP FRACTURE AFTER FALL AT HOME, Postoperative day #2 status post open reduction internal fixation left intertrochanteric fracture with gamma cephalo-medullary nail. Physical Exam Vital Signs: Temp Pulse Resp BP Pulse Ox 99.3 F 42 L 23 H 152/63 H 98 07/22/20 07:58 07/22/20 07:50 07/22/20 07:50 07/22/20 07:50 07/22/20 07:50 Intake & Output 07/21/20 07/22/20 07/23/20 06:59 06:59 06:59 Intake Total 1290 1536 100 Output Total 900 1050 Balance 390 486 100 Weight 70 kg 70 kg General appearance: PRESENT: no acute distress, well-developed, well-nourished Neck exam: PRESENT: full ROM Respiratory exam: PRESENT: clear to auscultation merry. ABSENT: rales, rhonchi, wheezes Cardiovascular exam: PRESENT: RRR. ABSENT: diastolic murmur, rubs, systolic murmur Musculoskeletal exam: PRESENT: other - The surgical incisions are healing well. There is no drainage. There is no discomfort with passive motion of the hip. The patient has normal motion of the ankle and foot. Sensation is normal. Results Laboratory Results: 07/22/20 04:40 07/22/20 04:40 07/22/20 07/22/20 04:40 04:40 WBC 8.6 RBC 4.01 L Hgb 12.1 L Hct 34.3 L MCV 85 MCH 30.1 MCHC 35.2 RDW 13.7 Plt Count 185 Sodium 136.3 L Potassium 4.5 Chloride 97 L Carbon Dioxide 31 H Anion Gap 8 BUN 15 Creatinine 0.89 Est GFR ( Amer) > 60 Glucose 115 H Calcium 8.6 Total Bilirubin 1.1 AST 47 Alkaline Phosphatase 103 Total Protein 5.9 L Albumin 3.2 L Impressions: Fluoroscopy 07/20/20 00:00 IMPRESSION: ORIF left hip. Refer to operative note for further information. Hip X-Ray 07/20/20 00:00 IMPRESSION: ORIF left hip. Refer to operative note for further information. Femur X-Ray 07/20/20 02:35 IMPRESSION: No acute osseous abnormality copyright 2011 [employer]- All Rights Reserved Pelvis CT 07/20/20 05:29 IMPRESSION: Left proximal intertrochanteric femur fracture without significant displacement or angulation. Findings reported to Dr. Diop at 0907 hours on 07/20/2020. Chest X-Ray 07/20/20 10:41 IMPRESSION: Trace lingular linear opacities, likely atelectasis or scarring. No other evidence of acute intrathoracic process. Head CT 07/20/20 11:05 IMPRESSION: NORMAL BRAIN CT WITHOUT CONTRAST. EVIDENCE OF ACUTE STROKE: NO. Assessment & Plan - Diagnosis (1) Closed intertrochanteric fracture of left hip Qualifiers: Encounter type: initial encounter Fracture alignment: nondisplaced Qualified Code(s): S72.145A - Nondisplaced intertrochanteric fracture of left femur, initial encounter for closed fracture Is this a current diagnosis for this admission?: Yes - Time Critical Time spent with patient: 15-24 minutes Anticipated Discharge Disposition: Home, Self Care Anticipated Discharge Timeframe: within 24 hours - Plan Summary Plan Summary: The patient is doing well. He is clear for discharge from an orthopedic standpoint. The question remains whether he will be able to return home or whether he will require nursing home facility placement. The patient was a ble to ambulate 20 feet today with the therapist. The patient should follow-up in my office in 2 weeks following discharge for wound evaluation.
--- NOTE | 2020-07-22 18:22 | PDOC PROGRESS REPORT ---
Subjective Subjective:: Patient admitted for left hip fracture, underwent surgical correction overnight 07/20. Pain seems to be mostly controlled and patient is starting to work with physical therapy. Orthopedic surgery states that patient can be discharged soon after he is gotten some more physical therapy and been evaluated for SNF versus home health. Patient has no new complaints other than moderate to severe intermittent left hip pain. 07/22/2020 Patient is to be overall doing quite well today and he states his pain is mostly controlled although when he does physical therapy it hurts quite a bit more as might be expected. We spoke again about how he should preemptively take his pain medicine before he starts therapy. He states he did not do this last time and he regretted it. Patient does not want to go to a rehab facility and insists that he will go home with home physical therapy instead. He is not having any significant worsening of his MS symptoms. Other than continued pain in his left hip, he has no new complaints. Possible discharge tomorrow if orthopedics agrees. Reason For Visit: ACUTE RIGHT HIP FRACTURE AFTER FALL AT HOME, Physical Exam Vital Signs: Temp Pulse Resp BP Pulse Ox 98.6 F 44 L 17 138/60 H 100 07/22/20 15:49 07/22/20 15:49 07/22/20 15:49 07/22/20 15:49 07/22/20 15:49 Intake & Output 07/21/20 07/22/20 07/23/20 06:59 06:59 06:59 Intake Total 1290 1536 936 Output Total 900 1050 400 Balance 390 486 536 Weight 70 kg 70 kg General appearance: PRESENT: no acute distress, well-developed, well-nourished Head exam: PRESENT: atraumatic, normocephalic Eye exam: PRESENT: conjunctiva pink Mouth exam: PRESENT: moist Respiratory exam: PRESENT: clear to auscultation merry. ABSENT: rales, rhonchi, wheezes Cardiovascular exam: PRESENT: RRR. ABSENT: diastolic murmur, rubs, systolic murmur GI/Abdominal exam: PRESENT: normal bowel sounds, soft. ABSENT: distended, guarding, mass, organolmegaly, rebound, tenderness Musculoskeletal exam: PRESENT: tenderness - Left hip tenderness moderate Neurological exam: PRESENT: alert, awake, oriented to person, oriented to place, oriented to time, oriented to situation Psychiatric exam: PRESENT: appropriate affect, normal mood Skin exam: PRESENT: dry, intact, warm Results Laboratory Results: 07/22/20 04:40 07/22/20 04:40 07/22/20 07/22/20 04:40 04:40 WBC 8.6 RBC 4.01 L Hgb 12.1 L Hct 34.3 L MCV 85 MCH 30.1 MCHC 35.2 RDW 13.7 Plt Count 185 Sodium 136.3 L Potassium 4.5 Chloride 97 L Carbon Dioxide 31 H Anion Gap 8 BUN 15 Creatinine 0.89 Est GFR ( Amer) > 60 Glucose 115 H Calcium 8.6 Total Bilirubin 1.1 AST 47 Alkaline Phosphatase 103 Total Protein 5.9 L Albumin 3.2 L Impressions: Fluoroscopy 07/20/20 00:00 IMPRESSION: ORIF left hip. Refer to operative note for further information. Hip X-Ray 07/20/20 00:00 IMPRESSION: ORIF left hip. Refer to operative note for further information. Femur X-Ray 07/20/20 02:35 IMPRESSION: No acute osseous abnormality copyright 2011 [employer]- All Rights Reserved Pelvis CT 07/20/20 05:29 IMPRESSION: Left proximal intertrochanteric femur fracture without significant displacement or angulation. Findings reported to Dr. Diop at 0907 hours on 07/20/2020. Chest X-Ray 07/20/20 10:41 IMPRESSION: Trace lingular linear opacities, likely atelectasis or scarring. No other evidence of acute intrathoracic process. Head CT 07/20/20 11:05 IMPRESSION: NORMAL BRAIN CT WITHOUT CONTRAST. EVIDENCE OF ACUTE STROKE: NO. Assessment and Plan - Diagnosis (1) Closed intertrochanteric fracture of left hip Qualifiers: Encounter type: initial encounter Fracture alignment: nondisplaced Qualified Code(s): S72.145A - Nondisplaced intertrochanteric fracture of left femur, initial encounter for closed fracture Is this a current diagnosis for this admission?: Yes Plan: Follow his counts onto his left hip Fracture seen on CT scan Orthopedic surgery consulted, went to the OR 07/20 Okay for regular diet when he is out of surgery assuming he passes bedside swallow postop 07/19/2020 Orthopedic surgery state surgery went well and patient can be discharged from their standpoint after he receives some additional physical therapy and evalu ation for SNF versus home health Pain is not quite controlled today and we will continue working on this today 07/22/2020 Pain management. Patient instructed to take pain medicine prior to his phys ical therapy sessions and he agreed Possible discharge tomorrow if orthopedics agrees. Patient only wants to go home with home physical therapy. States he is afraid of coronavirus and does not want to go to SNF because of this. (2) Contusion of left hip Qualifiers: Encounter type: initial encounter Qualified Code(s): S70.02XA - Contusion of left hip, initial encounter Is this a current diagnosis for this admission?: Yes (3) Multiple sclerosis Is this a current diagnosis for this admission?: Yes (4) Anxiety as acute reaction to exceptional stress Is this a current diagnosis for this admission?: Yes - Time Time Spent with patient: 25-34 minutes Medications reviewed and adjusted accordingly: Yes Anticipated Discharge Disposition: Home with Home Health Anticipated Discharge Timeframe: within 48 hours - Inpatient Certification Based on my medical assessment, after consideration of the patient's comorbidities, presenting symptoms, or acuity I expect that the services needed warrant INPATIENT care.: Yes I certify that my determination is in accordance with my understanding of Medicare's requirements for reasonable and necessary INPATIENT services [42 CFR 412.3e].: Yes Medical Necessity: Significant Comorbidiites Make Outpatient Treatment Too Risky, Need Close Monitoring Due to Risk of Patient Decompensation, Need for Pain Control, Risk of Complication if Not Cared For in Hospital, Risk of Sabrina gnosis Which Will Require Inpatient Eval/Care/Monitoring
[2020-07-23] MEDS: OXYCODONE-ACETAMINOPHEN 5-325 MG TABLET PO PRN ×4 (00:07→22:21)
[2020-07-23 06:00] LABS: HEMATOCRIT 33.3 % (37.9-51.0); HEMOGLOBIN 11.5 g/dL (13.5-17.0); MEAN CORPUSCULAR HEMOGLOBIN 29.5 pg (27.0-33.4); MEAN CORPUSCULAR HGB CONC 34.6 g/dL (32.0-36.0); MEAN CORPUSCULAR VOLUME 85 fl (80-97); PLATELET COUNT 173 10^3/uL (150-450); RED CELL DISTRIBUTION WIDTH 13.7 % (11.5-14.0); WHITE BLOOD COUNT 8.5 10^3/uL (4.0-10.5)
[2020-07-23 06:30] LABS: ALBUMIN 3.1 g/dL (3.5-5.0); ALKALINE PHOSPHATASE 121 U/L (38-126); ANION GAP 8 (5-19); ASPARTATE AMINO TRANSFERASE 42 U/L (17-59); BILIRUBIN,DIRECT 0.3 mg/dL (0.0-0.4); BILIRUBIN,TOTAL 0.9 mg/dL (0.2-1.3); BLOOD UREA NITROGEN 14 mg/dL (7-20); CALCIUM 8.6 mg/dL (8.4-10.2); CARBON DIOXIDE 31 mmol/L (22-30); CHLORIDE 96 mmol/L (98-107); GLUCOSE 113 mg/dL (75-110); POTASSIUM 3.9 mmol/L (3.6-5.0); TOTAL PROTEIN 5.8 g/dL (6.3-8.2)
[2020-07-23] MEDS: ASPIRIN 325 MG TABLET PO SCH (09:02)
[2020-07-23] MEDS: DOCUSATE SODIUM 100 MG CAPSULE PO SCH (09:02)
[2020-07-23] MEDS: ENOXAPARIN SODIUM INJ 40 MG/0.4 ML DISP.SYRIN SUBCUT SCH (09:07)
--- NOTE | 2020-07-23 16:38 | PDOC PROGRESS REPORT ---
Subjective Subjective:: Patient admitted for left hip fracture, underwent surgical correction overnight 07/20. Pain seems to be mostly controlled and patient is starting to work with physical therapy. Orthopedic surgery states that patient can be discharged soon after he is gotten some more physical therapy and been evaluated for SNF versus home health. Patient has no new complaints other than moderate to severe intermittent left hip pain. 07/22/2020 Patient is to be overall doing quite well today and he states his pain is mostly controlled although when he does physical therapy it hurts quite a bit more as might be expected. We spoke again about how he should preemptively take his pain medicine before he starts therapy. He states he did not do this last time and he regretted it. Patient does not want to go to a rehab facility and insists that he will go home with home physical therapy instead. He is not having any significant worsening of his MS symptoms. Other than continued pain in his left hip, he has no new complaints. Possible discharge tomorrow if orthopedics agrees. 07/23/2020 Patient's pain is mostly controlled except for when he is doing therapy when it increases. He is ready for discharge per my recommendations and orthopedics. He could be discharged today if his are ready to take him home. He has physical therapy set up in his home for Thursday. I spoke with the staff and there is no reason for him to stay here to wait for Thursday. He will be discharged tomorrow assuming everyone else is in agreement with this. Reason For Visit: ACUTE RIGHT HIP FRACTURE AFTER FALL AT HOME, Physical Exam Vital Signs: Temp Pulse Resp BP Pulse Ox 98.4 F 82 18 133/59 H 100 07/23/20 16:11 07/23/20 16:11 07/23/20 16:11 07/23/20 16:11 07/23/20 16:11 Intake & Output 07/22/20 07/23/20 07/24/20 06:59 06:59 06:59 Intake Total 1536 1056 240 Output Total 1050 950 250 Balance 486 106 -10 Weight 70 kg 69.1 kg Exam: General appearance: PRESENT: no acute distress, well-developed, well-nourished Head exam: PRESENT: atraumatic, normocephalic Eye exam: PRESENT: conjunctiva pink Mouth exam: PRESENT: moist Respiratory exam: PRESENT: clear to auscultation merry. ABSENT: rales, rhonchi, wheezes Cardiovascular exam: PRESENT: RRR. ABSENT: diastolic murmur, rubs, systolic murmur GI/Abdominal exam: PRESENT: normal bowel sounds, soft. ABSENT: distended, guarding, mass, organolmegaly, rebound, tenderness Musculoskeletal exam: PRESENT: tenderness - Left hip tenderness moderate Neurological exam: PRESENT: alert, awake, oriented to person, oriented to place, oriented to time, oriented to situation Psychiatric exam: PRESENT: appropriate affect, normal mood Skin exam: PRESENT: dry, intact, warm Results Laboratory Results: 07/23/20 05:10 07/23/20 05:10 07/23/20 07/23/20 05:10 05:10 WBC 8.5 RBC 3.90 L Hgb 11.5 L Hct 33.3 L MCV 85 MCH 29.5 MCHC 34.6 RDW 13.7 Plt Count 173 Sodium 134.9 L Potassium 3.9 Chloride 96 L Carbon Dioxide 31 H Anion Gap 8 BUN 14 Creatinine 0.89 Est GFR ( Amer) > 60 Glucose 113 H Calcium 8.6 Total Bilirubin 0.9 AST 42 Alkaline Phosphatase 121 Total Protein 5.8 L Albumin 3.1 L Impressions: Fluoroscopy 07/20/20 00:00 IMPRESSION: ORIF left hip. Refer to operative note for further information. Hip X-Ray 07/20/20 00:00 IMPRESSION: ORIF left hip. Refer to operative note for further information. Femur X-Ray 07/20/20 02:35 IMPRESSION: No acute osseous abnormality copyright 2011 [employer]- All Rights Reserved Pelvis CT 07/20/20 05:29 IMPRESSION: Left proximal intertrochanteric femur fracture without significant displacement or angulation. Findings reported to Dr. Diop at 0907 hours on 07/20/2020. Chest X-Ray 07/20/20 10:41 IMPRESSION: Trace lingular linear opacities, likely atelectasis or scarring. No other evidence of acute intrathoracic process. Head CT 07/20/20 11:05 IMPRESSION: NORMAL BRAIN CT WITHOUT CONTRAST. EVIDENCE OF ACUTE STROKE: NO. Assessment and Plan - Diagnosis (1) Closed intertrochanteric fracture of left hip Qualifiers: Encounter type: initial encounter Fracture alignment: nondisplaced Qualified Code(s): S72.145A - Nondisplaced intertrochanteric fracture of left femur, initial encounter for closed fracture Is this a current diagnosis for this admission?: Yes Plan: Follow his counts onto his left hip Fracture seen on CT scan Orthopedic surgery consulted, went to the OR 07/20 Okay for regular diet when he is out of surgery assuming he passes bedside swallow postop 07/19/2020 Orthopedic surgery state surgery went well and patient can be discharged from their standpoint after he receives some additional physical therapy and evaluation for SNF versus home health Pain is not quite controlled today and we will continue working on this today 07/22/2020 Pain management. Patient instructed to take pain medicine prior to his physical therapy sessions and he agreed Possible discharge tomorrow if orthopedics agrees. Patient only wants to go home with home physical therapy. States he is afraid of coronavirus and does not want to go to SNF because of this. Pain mostly controlled (2) Contusion of left hip Qualifiers: Encounter type: initial encounter Qualified Code(s): S70.02XA - Contusion of left hip, initial encounter Is this a current diagnosis for this admission?: Yes (3) Multiple sclerosis Is this a current diagnosis for this admission?: Yes (4) Anxiety as acute reaction to exceptional stress Is this a current diagnosis for this admission?: Yes - Time Time Spent with patient: 15-24 minutes Medications reviewed and adjusted accordingly: Yes Anticipated Discharge Disposition: Home with Home Health Anticipated Discharge Timeframe: within 24 hours - Inpatient Certification Based on my medical assessment, after consideration of the patient's comorbidities, presenting symptoms, or acuity I expect that the services needed warrant INPATIENT care.: Yes I certify that my determination is in accordance with my understanding of Medicare's requirements for reasonable and necessary INPATIENT services [42 CFR 412.3e].: Yes Medical Necessity: Significant Comorbidiites Make Outpatient Treatment Too Risky, Need Close Monitoring Due to Risk of Patient Decompensation, Need for Pain Control, Risk of Complication if Not Cared For in Hospital, Risk of Diagnosis Which Will Require Inpatient Eval/Care/Monitoring
[2020-07-24] MEDS: OXYCODONE-ACETAMINOPHEN 5-325 MG TABLET PO PRN ×3 (02:23→11:14)
[2020-07-24] MEDS: ASPIRIN 325 MG TABLET PO SCH (10:46)
[2020-07-24] MEDS: DOCUSATE SODIUM 100 MG CAPSULE PO SCH (10:46)
[2020-07-24] MEDS: ENOXAPARIN SODIUM INJ 40 MG/0.4 ML DISP.SYRIN SUBCUT SCH (10:47)
[2020-07-24 11:14] VITALS: BP 147/74
[2020-07-24] MEDS ORDERED: POLYETHYLENE GLYCOL 3350 POWDER 17 GM/1 PACKET PO SCH (12:00)
--- NOTE | 2020-07-24 12:22 | PDOC DISCHARGE SUMMARY ---
Impression - Admit/DC Date/PCP Admission Date/Primary Care Provider: 07/20/20 14:18 Discharge Date: 07/24/20 - Discharge Diagnosis (1) Closed intertrochanteric fracture of left hip Is this a current diagnosis for this admission?: Yes (2) Contusion of left hip Is this a current diagnosis for this admission?: Yes (3) Multiple sclerosis Is this a current diagnosis for this admission?: Yes (4) Anxiety as acute reaction to exceptional stress Is this a current diagnosis for this admission?: Yes - Assessment Summary: No significant changes since discharge yesterday. Patient will go home with home health physical therapy. Orthopedic surgery is managing his narcotics. He will be discharged home with Eliquis 2.5 mg twice daily for DVT prophylaxis for a total of 30 days, already received 4 days of treatment postop ER. Patient understands bleeding risk especially in the setting of a fall. Blood thinners will need to be monitored by orthopedic surgery outpatient. Patient has no new complaints today and states his pain is actually improving. Discharged home with home health. - Additional Information Resuscitation Status: Full Code Discharge Diet: Regular Discharge Activity: Activity As Tolerated, Balance Activity w/Rest Referrals: VIOLETA NIETO PA [NO LOCAL MD] - 07/30/20 1:15 pm ALLY HURST MD [ACTIVE STAFF] - 08/07/20 11:15 am (Office is closed on Mondays. We will schedule a follow-up and contact you with the date and time. Thank you and have a great day!) Prescriptions: Apixaban [Eliquis 2.5 mg Tablet] 2.5 mg PO BID 26 Days #52 tablet Polyethylene Glycol 3350 [Miralax Powder 17 gm/Packet] 1 packet PO DAILY #7 pkg Hydrocodone/Acetaminophen [[place] 5-325 mg Tablet] 1 tab PO TID #12 tablet Hydrocodone/Acetaminophen [[place] 5-325 mg Tablet] 1 tab PO TID #12 tablet Home Medications: Cholecalciferol (Vitamin D3) [Vitamin D3 1000 Unit Tablet] 1,000 mg PO DAILY 07/20/20 Hydrocodone/Acetaminophen [[place] 5-325 mg Tablet] 1 tab PO TID #12 tablet 07/20/20 Hydrocodone/Acetaminophen [[place] 5-325 mg Tablet] 1 tab PO TID #12 tablet 07/20/20 Polyethylene Glycol 3350 [Miralax Powder 17 gm/Packet] 1 packet PO DAILY #7 pkg 07/20/20 Apixaban [Eliquis 2.5 mg Tablet] 2.5 mg PO BID 26 Days #52 tablet 07/23/20 History of Present Illiness History of Present Illness: ANUP REID is a 70 year old male with past medical history significant for stable multiple sclerosis who presented after falling off of his couch 1 night prior to admission, presented to ED with severe left hip pain, found to have a left intertrochanteric fracture on CT. Orthopedic surgery consulted and they requested medicine to admit and they would take patient to the OR for surgical intervention. Per patient and his , he does have some anxiety issues regarding surgeries and his MS causes some additional unilateral weakness during times of great stress. Patient states he has not had any acute problems from his MS in many years and he does not take any ongoing treatment for this. Patient had some new left-sided facial asymmetry which he and his related to the stress of his hip fracture causing MS to become worse. CT head without contrast did not show any acute abnormalities. Other than severe right hip pain and anxiety, patient has no acute complaints. Hospital Course Hospital Course: Patient admitted for left hip fracture, underwent surgical correction overnight 07/20. Pain seems to be mostly controlled and patient is starting to work with physical therapy. Orthopedic surgery states that patient can be discharged soon after he is gotten some more physical therapy and been evaluated for SNF versus home health. Patient has no new complaints other than moderate to severe intermittent left hip pain. 07/22/2020 Patient is to be overall doing quite well today and he states his pain is mostly controlled although when he does physical therapy it hurts quite a bit more as might be expected. We spoke again about how he should preemptively take his pain medicine before he starts therapy. He states he did not do this last time and he regretted it. Patient does not want to go to a rehab facility and insists that he will go home with home physical therapy instead. He is not having any significant worsening of his MS symptoms. Other than continued pain in his left hip, he has no new complaints. Possible discharge tomorrow if orthopedics agrees. 07/23/2020 Patient's pain is mostly controlled except for when he is doing therapy when it increases. He is ready for discharge per my recommendations and orthopedics. He could be discharged today if his are ready to take him home. He has physical therapy set up in his home for Thursday. I spoke with the staff and there is no reason for him to stay here to wait for Thursday. He will be disch arged tomorrow assuming everyone else is in agreement with this. (1) Closed intertrochanteric fracture of left hip Qualifiers: Encounter type: initial encounter Fracture alignment: nondisplaced Qualified Code(s): S72.145A - Nondisplaced intertrochanteric fracture of left femur, initial encounter for closed fracture Is this a current diagnosis for this admission?: Yes Plan: Fell off couch onto his left hip Fracture seen on CT scan Orthopedic surgery consulted, went to the OR 07/20 Okay for regular diet when he is out of surgery assuming he passes bedside swallow postop 07/19/2020 Orthopedic surgery state surgery went well and patient can be discharged from their standpoint after he receives some additional physical therapy and evaluation for SNF versus home health Pain is not quite controlled today and we will continue working on this today 07/22/2020 Pain management. Patient instructed to take pain medicine prior to his physical therapy sessions and he agreed Possible discharge tomorrow if orthopedics agrees. Patient only wants to go home with home physical therapy. States he is afraid of coronavirus and does not want to go to SNF because of this. 07/23 Pain controlled 07/24 ready for DC, no new complaints Eliquis 2.5mg bid for total 30 from day of surgery; at DC will need 26 more days of AC (2) Contusion of left hip Qualifiers: Encounter type: initial encounter Qualified Code(s): S70.02XA - Contusion of left hip, initial encounter Is this a current diagnosis for this admission?: Yes (3) Multiple sclerosis Is this a current diagnosis for this admission?: Yes (4) Anxiety as acute reaction to exceptional stress Is this a current diagnosis for this admission?: Yes Physical Exam Vital Signs: Temp Pulse Resp BP Pulse Ox 97.9 F 84 17 149/71 H 100 07/23/20 11:40 07/23/20 11:40 07/23/20 11:40 07/23/20 11:40 07/23/20 11:40 Intake & Output 08/23/20 08/24/20 08/25/20 06:59 06:59 06:59 Intake Total 1536 1056 240 Output Total 1050 950 250 Balance 486 106 -10 Weight 70 kg 69.1 kg Exam: General appearance: PRESENT: no acute distress, well-developed, well-nourished Head exam: PRESENT: atraumatic, normocephalic Eye exam: PRESENT: conjunctiva pink Mouth exam: PRESENT: moist Respiratory exam: PRESENT: clear to auscultation merry. ABSENT: rales, rhonchi, wheezes Cardiovascular exam: PRESENT: RRR. ABSENT: diastolic murmur, rubs, systolic murmur GI/Abdominal exam: PRESENT: normal bowel sounds, soft. ABSENT: distended, guarding, mass, organolmegaly, rebound, tenderness Musculoskeletal exam: PRESENT: tenderness - Left hip tenderness mild/moderate Neurological exam: PRESENT: alert, awake, oriented to person, oriented to place, oriented to time, oriented to situation Psychiatric exam: PRESENT: appropriate affect, normal mood Skin exam: PRESENT: dry, intact, warm Results Laboratory Results: WBC 8.5 10^3/uL (4.0-10.5) 07/23/20 05:10 RBC 3.90 10^6/uL (4.35-5.55) L 07/23/20 05:10 Hgb 11.5 g/dL (13.5-17.0) L 07/23/20 05:10 Hct 33.3 % (37.9-51.0) L 07/23/20 05:10 MCV 85 fl (80-97) 07/23/20 05:10 MCH 29.5 pg (27.0-33.4) 07/23/20 05:10 MCHC 34.6 g/dL (32.0-36.0) 07/23/20 05:10 RDW 13.7 % (11.5-14.0) 07/23/20 05:10 Plt Count 173 10^3/uL (150-450) 07/23/20 05:10 Lymph % (Auto) 16.9 % (13-45) 07/20/20 05:51 [place] % (Auto) 8.1 % (3-13) 07/20/20 05:51 Eos % (Auto) 1.1 % (0-6) 07/20/20 05:51 Baso % (Auto) 0.8 % (0-2) 07/20/20 05:51 Absolute Neuts (auto) 7.0 10^3/uL (1.7-8.2) 07/20/20 05:51 Absolute Lymphs (auto) 1.6 10^3/uL (0.5-4.7) 07/20/20 05:51 Absolute Monos (auto) 0.8 10^3/uL (0.1-1.4) 07/20/20 05:51 Absolute Eos (auto) 0.1 10^3/uL (0.0-0.6) 07/20/20 05:51 Absolute Basos (auto) 0.1 10^3/uL (0.0-0.2) 07/20/20 05:51 Seg Neutrophils % 73.1 % (42-78) 07/20/20 05:51 Sodium 134.9 mmol/L (137-145) L 07/23/20 05:10 Potassium 3.9 mmol/L (3.6-5.0) 07/23/20 05:10 Chloride 96 mmol/L (98-107) L 07/23/20 05:10 Carbon Dioxide 31 mmol/L (22-30) H 07/23/20 05:10 Anion Gap 8 (5-19) 07/23/20 05:10 BUN 14 mg/dL (7-20) 07/23/20 05:10 Creatinine 0.89 mg/dL (0.52-1.25) 07/23/20 05:10 Est GFR ( Amer) > 60 (>60) 07/23/20 05:10 Est GFR (MDRD) Non-Af > 60 (>60) 07/23/20 05:10 Glucose 113 mg/dL (75-110) H 07/23/20 05:10 Calcium 8.6 mg/dL (8.4-10.2) 07/23/20 05:10 Phosphorus 2.8 mg/dL (2.5-4.5) 07/21/20 06:10 Magnesium 2.1 mg/dL (1.6-2.3) 07/21/20 06:10 Total Bilirubin 0.9 mg/dL (0.2-1.3) 07/23/20 05:10 Direct Bilirubin 0.3 mg/dL (0.0-0.4) 07/23/20 05:10 Neonat Total Bilirubin Not Reportable 07/23/20 05:10 Neonat Direct Bilirubin Not Reportable 07/23/20 05:10 Neonat Indirect Bili Not Reportable 07/23/20 05:10 AST 42 U/L (17-59) 07/23/20 05:10 ALT 28 U/L (<50) 07/23/20 05:10 Alkaline Phosphatase 121 U/L (38-126) 07/23/20 05:10 C-Reactive Protein 26.8 mg/L (<10.0) H 07/20/20 05:51 Total Protein 5.8 g/dL (6.3-8.2) L 07/23/20 05:10 Albumin 3.1 g/dL (3.5-5.0) L 07/23/20 05:10 Urine Color YELLOW 07/20/20 08:30 Urine Appearance CLEAR 07/20/20 08:30 Urine pH 6.0 (5.0-9.0) 07/20/20 08:30 Ur Specific [place] 1.034 07/20/20 08:30 Urine Protein 30 mg/dL (NEGATIVE) H 07/20/20 08:30 Urine Glucose (UA) NEGATIVE mg/dL (NEGATIVE) 07/20/20 08:30 Urine Ketones TRACE mg/dL (NEGATIVE) H 07/20/20 08:30 Urine Blood NEGATIVE (NEGATIVE) 07/20/20 08:30 Urine Nitrite NEGATIVE (NEGATIVE) 07/20/20 08:30 Urine Bilirubin NEGATIVE (NEGATIVE) 07/20/20 08:30 Urine Urobilinogen NEGATIVE mg/dL (<2.0) 07/20/20 08:30 Ur Leukocyte Esterase NEGATIVE (NEGATIVE) 07/20/20 08:30 Urine WBC (Auto) 7 /HPF 07/20/20 08:30 Urine RBC (Auto) 1 /HPF 07/20/20 08:30 U Hyaline Cast (Auto) 7 /LPF 07/20/20 08:30 Squamous Epi Cells Auto <1 /HPF 07/20/20 08:30 Urine Mucus (Auto) FEW /LPF 07/20/20 08:30 Urine Ascorbic Acid 20 (NEGATIVE) H 07/20/20 08:30 SARS-CoV-2 (PCR) NEGATIVE (NEGATIVE) 07/20/20 11:54 Impressions: Fluoroscopy 07/20/20 00:00 IMPRESSION: ORIF left hip. Refer to operative note for further information. Hip X-Ray 07/20/20 00:00 IMPRESSION: No evidence of acute osseous injury involving the pelvis or left hip. There is mild generalized narrowing of the hip joints. Hip X-Ray 07/20/20 00:00 IMPRESSION: ORIF left hip. Refer to operative note for further information. Femur X-Ray 07/20/20 02:35 IMPRESSION: No acute osseous abnormality copyright 2011 [employer]- All Rights Reserved Pelvis CT 07/20/20 05:29 IMPRESSION: Left proximal intertrochanteric femur fracture without significant displacement or angulation. Findings reported to Dr. Diop at 0907 hours on 07/20/2020. Chest X-Ray 07/20/20 10:41 IMPRESSION: Trace lingular linear opacities, likely atelectasis or scarring. No other evidence of acute intrathoracic process. Head CT 07/20/20 11:05 IMPRESSION: NORMAL BRAIN CT WITHOUT CONTRAST. EVIDENCE OF ACUTE STROKE: NO. Plan Plan of Treatment: Follow-up with PCP Follow-up with orthopedics Eliquis 2.5 mg twice daily for a total of 30 days from surgery date, will be followed/monitored by orthopedics outpatient Pain management per orthopedics Time Spent: Greater than 30 Minutes Stroke Is this a Stroke Patient?: No Acute Heart Failure - Is this a Heart Failure Patient?: No
== END 2020-07-24 11:45 | disposition home health service (06) | DRG 482 ==
LOC: ER 01:00 → EH 14:18 → 4W 18:43
PROVIDERS: ADMIT Internal Medicine; ATTEND Internal Medicine
PROC: 0QH734Z Insertion of Internal Fixation Device into Left Upper Femur, Percutaneous Approach (ICD-10-PCS; principal; 2020-07-20 14:00)
DX: S72.145A Nondisplaced intertrochanteric fracture of left femur, initial encounter for closed fracture (principal); G35 Multiple sclerosis; F41.1 Generalized anxiety disorder; F43.0 Acute stress reaction; W08.XXXA Fall from other furniture, initial encounter; Y93.84 Activity, sleeping; Y92.018 Other place in single-family (private) house as the place of occurrence of the external cause; Z11.59 Encounter for screening for other viral diseases
CPT/HCPCS: 01230; 36415; 70450; 71045; 72192; 80053; 81001; 83735; 84100; 85025; 85027; 86140; 87635; 93005; 93010; 96361; 96372; 96374; 96375; 96376; C1713; C1769; C9803; J0690; J1170; J1650; J1885; J2250; J2405; J2704; J3010; J3490; J7030; J7060

== ENCOUNTER 2020-07-28 00:40 | Emergency (ER) | payer MEDICARE ==
[2020-07-28] MEDS ORDERED: HYDROMORPHONE HCL INJ/PF 2 MG/ML AMPULE IV ONE ×3 (03:15→14:19)
[2020-07-28] MEDS ORDERED: ONDANSETRON HCL INJ/PF 4 MG/2 ML SDV IV ONE ×3 (03:16→14:20)
[2020-07-28 03:40] LABS: INTERNATIONAL RATION (INR) 1.06
[2020-07-28 03:41] LABS: PARTIAL THROMBOPLASTIN TIME 35.4 SEC (23.5-35.8)
--- NOTE | 2020-07-28 03:48 | ER Document Report ---
Entered by ALFREDO DOMINGUEZ SCRIBE 07/28/20 0315 Acting as scribe for:MARVEL LAYTON IV, MD ED Extremity Problem, Lower <MIRANDA LOMBARDO - Last Filed: 07/28/20 12:41> - General Mode of Arrival: Wheelchair Information source: Patient <MARVEL LAYTON IV - Last Filed: 07/29/20 03:17> <SANTOSBOBBI JOYA - Last Filed: 07/29/20 14:04> - General Chief Complaint: Leg Swelling Stated Complaint: LEFT KNEE SWELLING Time Seen by Provider: 07/28/20 02:53 Primary Care Provider: VIOLETA NIETO PA [Primary Care Provider] - Follow up as needed Notes: This 70 year old male patient brought in by EMS from home presents to the ED today with complaints of LLE pain and left knee swelling that started yesterday evening. Patient is x8 days postop ORIF of left hip intertrochanteric fracture with gamma cephalo-medullary nail performed by Dr. Kwan. at bedside states that the patient was discharged home on 07/24 with a prescription for [place] and Eliquis; however, she was unable to fill the Eliquis due to insurance issues. She reports that the patient was advised by Dr. Kwan to take x1 Aspirin qd instead. Patient has been taking the [place] with mild relief, last dose was around 2230 last night. Denies any other complaints. (MARVEL LAYTON IV) - Related Data Allergies/Adverse Reactions: shellfish derived Allergy (Verified 07/20/20 10:23) Past Medical History - General Information source: Patient - Social History Smoking Status: Former Smoker Chew tobacco use (# tins/day): No Smoking Education Provided: No Frequency of alcohol use: None Drug Abuse: None Lives with: Spouse/Significant other Family History: Reviewed & Not Pertinent Patient has suicidal ideation: No Patient has homicidal ideation: No - Past Medical History Cardiac Medical History: Reports: Hx Hypercholesterolemia, Hx Hypertension Pulmonary Medical History: Reports: Hx COPD Malignancy Medical History: Reports Hx Skin Cancer Musculoskeletal Medical History: Reports Hx Arthritis, Reports Hx Multiple Sclerosis Psychiatric Medical History: Reports: Hx Depression - mild Traumatic Medical History: Reports: Hx Fractures - Left hip Past Surgical History: Reports: Hx Orthopedic Surgery - Left hip ORIF 07/20/2020 <MARVEL LAYTON IV - Last Filed: 07/29/20 03:17> Review of Systems - Review of Systems Constitutional: No symptoms reported EENT: No symptoms reported Cardiovascular: No symptoms reported Respiratory: No symptoms reported Gastrointestinal: No symptoms reported Genitourinary: No symptoms reported Male Genitourinary: No symptoms reported Musculoskeletal: See HPI Skin: No symptoms reported Hematologic/Lymphatic: No symptoms reported Neurological/Psychological: No symptoms reported -: Yes All other systems reviewed and negative <MARVEL LAYTON IV - Last Filed: 07/29/20 03:17> Physical Exam - General General appearance: Alert - HEENT Head: Normocephalic, Atraumatic Eyes: Normal Extraocular movements intact: Yes Pupils: PERRL - Respiratory Respiratory status: No respiratory distress Chest status: Nontender Breath sounds: Normal Chest palpation: Normal - Cardiovascular Rhythm: Regular Heart sounds: Normal auscultation Murmur: No Friction rub: No Gallop: None auscultated - Abdominal Inspection: Normal Distension: No distension Bowel sounds: Normal Tenderness: Nontender - Abdomen soft Organomegaly: No organomegaly - Back Back: Normal, Nontender - Extremities General upper extremity: Normal inspection General lower extremity: Normal inspection - No swelling or erythema noted to LLE Knee: Tender - Tenderness to palpation of left patella, Other - Diffuse swelling noted around the left patella, no erythema appreciated - Neurological Neuro grossly intact: Yes Orientation: AAOx4 Nabil Coma Scale Eye Opening: Spontaneous [place] Coma Scale Verbal: Oriented [place] Coma Scale Motor: Obeys Commands [place] Coma Scale Total: 15 - Psychological Associated symptoms: Normal affect, Normal mood - Skin Skin Temperature: Warm Skin Moisture: Dry Skin Color: Normal <MARVEL LAYTON IV - Last Filed: 07/29/20 03:17> - Vital signs Vitals: Temp Pulse Resp BP Pulse Ox 98.8 F 43 L 20 136/66 H 96 07/28/20 00:53 07/28/20 00:53 07/28/20 00:53 07/28/20 00:53 07/28/20 00:53 Course - Laboratory Result Diagrams: 07/28/20 03:22 07/28/20 03:22 - Diagnostic Test Radiology reviewed: Reports reviewed - Venous Doppler study of the left lower extremity is negative. <MIRANDA LOMBARDO - Last Filed: 07/28/20 12:41> - Laboratory Result Diagrams: 07/28/20 03:22 07/28/20 03:22 <MARVEL LAYTON IV - Last Filed: 07/29/20 03:17> - Laboratory Result Diagrams: 07/28/20 03:22 07/28/20 03:22 <BOBBI SANTOS - Last Filed: 07/29/20 14:04> - Re-evaluation Re-evalutation: 07/28/20 03:48 Patient and patient's significant other informed that Doppler ultrasound will not be available until later this morning at approximately 0800 hrs. (MARVEL LAYTON IV) - Vital Signs Vital signs: Temp Pulse Resp BP Pulse Ox 98.1 F 77 18 140/58 H 97 07/29/20 08:08 07/29/20 08:08 07/29/20 08:08 07/29/20 08:08 07/29/20 08:08 - Laboratory Laboratory results interpreted by me: 07/28/20 07/28/20 03:22 03:22 RBC 3.58 L Hgb 10.5 L Hct 30.8 L Sodium 136.2 L Chloride 97 L Carbon Dioxide 31 H BUN 21 H Glucose 111 H ALT 68 H Alkaline Phosphatase 165 H Total Protein 6.1 L Discharge <MIRANDA LOMBARDO - Last Filed: 07/28/20 12:41> <MARVEL LAYTON IV - Last Filed: 07/29/20 03:17> <BOBBI SANTOS - Last Filed: 07/29/20 14:04> - Discharge Clinical Impression: Edema of left lower extremity Condition: Stable Disposition: OTHER Additional Instructions: Please go directly to [facility] to live. Come back immediately with any increased pain, swelling of the leg, fevers, vomiting, chest pain, or any other acute problems. Please follow-up with orthopedics. Referrals: VIOLETA NIETO PA [Primary Care Provider] - Follow up as needed I personally performed the services described in the documentation, reviewed and edited the documentation which was dictated to the scribe in my presence, and it accurately records my words and actions.
[2020-07-28 04:33] LABS: ALBUMIN 3.5 g/dL (3.5-5.0); ALKALINE PHOSPHATASE 165 U/L (38-126); ANION GAP 8 (5-19); ASPARTATE AMINO TRANSFERASE 55 U/L (17-59); BILIRUBIN,DIRECT 0.4 mg/dL (0.0-0.4); BILIRUBIN,TOTAL 0.7 mg/dL (0.2-1.3); BLOOD UREA NITROGEN 21 mg/dL (7-20); CALCIUM 9.4 mg/dL (8.4-10.2); CARBON DIOXIDE 31 mmol/L (22-30); CHLORIDE 97 mmol/L (98-107); GLUCOSE 111 mg/dL (75-110); POTASSIUM 4.6 mmol/L (3.6-5.0); TOTAL PROTEIN 6.1 g/dL (6.3-8.2)
[2020-07-28 04:35] LABS: ABSOLUTE BASOPHILS # (AUTO) 0.1 10^3/uL (0.0-0.2); ABSOLUTE EOSINOPHILS # (AUTO) 0.2 10^3/uL (0.0-0.6); ABSOLUTE LYMPHOCYTES (AUTO) 1.4 10^3/uL (0.5-4.7); ABSOLUTE MONOCYTES (AUTO) 0.9 10^3/uL (0.1-1.4); ABSOLUTE NEUT (AUTO) 6.7 10^3/uL (1.7-8.2); EOSINOPHILS % (AUTO) 1.8 % (0-6); HEMATOCRIT 30.8 % (37.9-51.0); HEMOGLOBIN 10.5 g/dL (13.5-17.0); LYMPHOCYTES % (AUTO) 15.1 % (13-45); MEAN CORPUSCULAR HEMOGLOBIN 29.4 pg (27.0-33.4); MEAN CORPUSCULAR HGB CONC 34.3 g/dL (32.0-36.0); MEAN CORPUSCULAR VOLUME 86 fl (80-97); MONOCYTES % (AUTO) 9.7 % (3-13); PLATELET COUNT 375 10^3/uL (150-450); RED BLOOD COUNT 3.58 10^6/uL (4.35-5.55); RED CELL DISTRIBUTION WIDTH 13.6 % (11.5-14.0); SEGMENTED NEUTROPHILS % (AUTO) 72.4 % (42-78); TOTAL CELLS COUNTED % (AUTO) 100 %; WHITE BLOOD COUNT 9.2 10^3/uL (4.0-10.5)
--- NOTE | 2020-07-28 10:58 | RADIOLOGY REPORT (SQ) ---
EXAM DESCRIPTION: VENOUS UNILATERAL LOWER IMAGES COMPLETED DATE/TIME: 07/28/2020 10:37 am REASON FOR STUDY: left lower extremity swelling p hip replacement COMPARISON: None. TECHNIQUE: Dynamic and static hubbard scale and color images acquired of the left leg venous system. Se lected spectral images acquired with additional compression and augmentation maneuvers. The contralat eral common femoral vein and saphenofemoral junction were also imaged. Images stored on PACS. LIMITATIONS: None. FINDINGS: LEFT COMMON FEMORAL: Normal phasicity, compression and augmentation. No visualized echogenic material on g ray scale. No defects on color images. FEMORAL: Normal compression and augmentation. No visualized echogenic material on hubbard scale. No defe cts on color images. POPLITEAL: Normal compression, augmentation. No visualized echogenic material on hubbard scale. No defec ts on color images. CALF VESSELS: Normal compression, augmentation. No visualized echogenic material on hubbard scale. No de fects on color images. GSV and SSV: Normal compression, augmentation. No visualized echogenic material on hubbard scale. No def ects on color images. ANY DEEP VENOUS INSUFFICIENCY: Not evaluated. ANY EVIDENCE OF POPLITEAL CYST: No. OTHER: No other significant finding. RIGHT COMMON FEMORAL VEIN AND SAPHENOFEMORAL JUNCTION: Normal phasicity, compression and augmentation. No visualized echogenic material on hubbard scale. No de fects on color images. IMPRESSION: NO EVIDENCE OF DVT OR SVT IN THE LEFT LEG. TECHNICAL DOCUMENTATION: JOB ID: [id number] 2010 [email or web address]- All Rights Reserved Reading location - IP/workstation name: [email or web address]
--- NOTE | 2020-07-28 12:52 | ER Document Report ---
Doctor's Note Notes: 07/28/20 12:48 The patient's venous Doppler study of the left lower extremity was negative for DVT. On discussing the patient's discharge, the and patient both told me they actually came here to be transferred to a long term for rehab. The spouse and patient both state that he is unable to get around at home. The spouse is not able to lift him and care for him. The patient has MS. They also showed me paperwork with instructions for contusion management when he was discharged, the states that the home health/physical therapy people thought they were coming to help someone with a hip contusion and did not know it was a postop rehab. When the patient was discharged, he did not want to go to the long term for rehab, but wanted to try to rehab at home due to concerns about COVID-19. He realizes that was a mistake, and states that they were told when he was discharged that if he had any problems to come right back to the hospital to be placed into a rehab facility. 07/28/20 14:20 alley worker did come down to see the patient and his spouse and is presently trying to get him into the [facility] facility. 07/28/20 16:47 The nurse informed me that [facility] had accepted the patient, and was sending someone over tomorrow to get FL-2 signed and the patient would need to stay here overnight. Patient care was transferred to Dr. Morse at this time.
--- NOTE | 2020-07-28 16:36 | RADIOLOGY REPORT (SQ) ---
EXAM DESCRIPTION: HIP LEFT AP/LATERAL IMAGES COMPLETED DATE/TIME: 07/28/2020 4:11 pm REASON FOR STUDY: s/p orif COMPARISON: None. NUMBER OF VIEWS: Three views. TECHNIQUE: AP pelvis and additional AP and frog legview of the left hip. LIMITATIONS: None. FINDINGS: MINERALIZATION: Normal. LEFT HIP: Treated subcapital fracture with anatomic alignment RIGHT HIP: No fracture or dislocation. No worrisome bone lesions. Limited views. PUBIS AND ISCHIUM: No fracture. PELVIS: No fracture. SACRUM: No fracture or dislocation. No worrisome bone lesions. LOWER LUMBAR SPINE: No fracture or dislocation. No worrisome bone lesions. No significant disc disea se. SOFT TISSUES: No findings. OTHER: No other significant finding. IMPRESSION: Expected findings post internal fixation subcapital fracture. TECHNICAL DOCUMENTATION: JOB ID: [id number] 2010 [employer]- All Rights Reserved Reading location - IP/workstation name: [email or web address]
[2020-07-28] MEDS ORDERED: KETOROLAC TROMETHAMINE INJ/PF 30 MG/1 ML SDV IV ONE (18:45)
[2020-07-29] MEDS: HYDROMORPHONE HCL INJ/PF 2 MG/ML AMPULE IV PRN ×2 (02:15→11:08)
[2020-07-29] MEDS ORDERED: KETOROLAC TROMETHAMINE INJ/PF 30 MG/1 ML SDV IV ONE (08:11)
[2020-07-29 08:19] VITALS: BP 140/58
[2020-07-29] MEDS ORDERED: DOCUSATE SODIUM 100 MG CAPSULE PO ONE (13:37)
== END 2020-07-29 14:10 | disposition other institution (70) ==
LOC: ER 00:40
DX: R60.0 Localized edema (principal); S72.142D Displaced intertrochanteric fracture of left femur, subsequent encounter for closed fracture with routine healing; X58.XXXD Exposure to other specified factors, subsequent encounter; Z98.890 Other specified postprocedural states; Z91.013 Allergy to seafood; Z87.891 Personal history of nicotine dependence
CPT/HCPCS: 96376; 99285; 96374; 96375; 36415; 85025; 85610; 85730; 80053; 93971; 73502; A9270; J1885 ×2; J1170 ×2; J2405